=== PATIENT | female | born 1970 | race Caucasian/White ===

== ENCOUNTER 2020-11-21 02:35 | Outpatient (CLI) | payer BC, SELFPAY ==
[2020-11-21 08:25] LABS: ALT 22 U/L (14-59); AST 14 U/L (15-37); Albumin 3.9 g/dL (3.4-5.0); Alkaline Phosphatase 77 U/L (46-116); Anion Gap 6.3 mmol/L (3-11); BUN 11 mg/dL (7-18); Bilirubin, Total 0.7 mg/dL (0.2-1.0); CO2 30.7 mmol/L (21.0-32.0); CREATININE 0.9 mg/dL (0.55-1.02); Calcium 9.1 mg/dL (8.5-10.1); Calculated LDL 68 mg/dL (<100); Chloride 105 mmol/L (98-107); Cholesterol 169 mg/dL (<200); Glucose 82 mg/dL (74-106); HDL Cholesterol 93 mg/dL (40-60); Potassium 4.3 mmol/L (3.5-5.1); Sodium 142 mmol/L (136-145); Total Protein 6.8 g/dL (6.4-8.2); Triglyceride 41 mg/dL (<150)
[2020-11-22 09:42] LABS: Hepatitis C Ab w Rflx HCV PCR Negative (Negative)
[2020-11-22 09:53] LABS: HIV-1/2 Ag & Ab Screen Negative (Negative)
== END 2020-11-21 02:36 | disposition home or self-care (01) ==
PROVIDERS: PCP Nurse Practitioner Adult Health; Visit Provider Nurse Practitioner Adult Health
DX: E55.9 Vitamin D deficiency, unspecified (principal); Z13.220 Encounter for screening for lipoid disorders; Z11.4 Encounter for screening for human immunodeficiency virus [HIV]; Z11.59 Encounter for screening for other viral diseases
CPT/HCPCS: 36415; 80053; 80061; 82306; 86803; 87389

== ENCOUNTER 2020-12-18 13:12 | Outpatient (REF) | payer BC, SELFPAY ==
--- NOTE | 2020-12-18 12:30 | PAPFT_PTH ---
PATIENT: Melody Soriano LOC: [facility] U#:[id number] AGE/SX: 50/F ROOM: RE12/18/[address]: Yoly Soto APRN : 1970 BED: DIS: 12/18/2020 SPEC #: [id number] RECD: 12/19/20 13:02 STATUS: TAYLER REPk #: [id number] ESPERANZA: 12/18/20 12:[address]: Yoly Soto [facility] Cytology RECD BY: Светлана Baird Tissues: 1 - CX/ENDOCX FOR PAP SMEARS Procedures: PAP THIN PREP/UVM Screening HPV DNA PROBE Comments: [id number]
== END 2020-12-18 13:13 | disposition home or self-care (01) ==
LOC: LBN 13:12
PROVIDERS: PCP Nurse Practitioner Adult Health; Referring Provider Nurse Practitioner Adult Health; Visit Provider Nurse Practitioner Adult Health
DX: Z12.4 Encounter for screening for malignant neoplasm of cervix (principal); Z11.51 Encounter for screening for human papillomavirus (HPV)
CPT/HCPCS: 88142; 87624

== ENCOUNTER 2021-01-02 01:44 | Outpatient (CLI) | payer BC, SELFPAY ==
--- NOTE | 2021-01-02 11:13 | DI.MAMMO_ITS ---
Exam(s) MAMMO SCREENING EXAM: MAMMO SCREENING CLINICAL HISTORY: screening,z12.39h/o recurrent us due to density,dense breast tissue,r92.2. TECHNIQUE: Bilateral full field digital CC and MLO mammographic images were obtained with 3D tomosyn thesis and utilizing computer aided detection (CAD). COMPARISON: Prior outside mammograms dating back to 2018, the most recent being July 10, 2020. T his patient also apparently underwent recent breast ultrasound examinations in [place] in January 14 and more recently right breast ultrasound performed in [place] 07/10/2020. We have the report s but not the prior images. FINDINGS: Fibroglandular tissue pattern is dense, this decreasing the sensitivity of the mammogram for finding hidden underlying lesions. Biopsy marker clip posteriorly in the right breast is again noted with no new significant findings in the immediate vicinity of this clip. On 3D imaging there is a suggestion of a 5 by 5 millimeter noncalcified well-defined nodule located a pproximately 2.5 cm in from the nipple, lateral of center on the CC view. Also subtle suggestion of a nodular density of similar size in the opposite-right breast, also lateral of center approximately 4 cm in from the nipple on the CC view. Benign-appearing microcalcifications are again noted in both breast There is no significant architectural distortion nor skin thickening-retraction. IMPRESSION: Very dense bilateral fibroglandular tissue. Suggestion of bilateral nodules. Recommend bilateral co mplete breast ultrasound examination. BI-RADS Category 0 - Assessment Incomplete: Need additional imaging evaluation Breast Density - Category D - Extremely dense Breast density Category C or D implies that the patient has dense breast tissue. Dense breast tissue can make it harder to find cancer on a mammogram. Dense breast tissue is also associated with an incr eased risk of breast cancer. This information about the result of the mammogram report was provided to the patient to raise their awareness. Use this report when you speak with the patient about their risks for breast cancer, which includes their family history. At that time, you may recommend additional screening tests (Ultrasoun d or MRI) as these tests may add significant information. A negative radiographic report should not delay biopsy if a dominant or clinically suspicious mass is present. Up to ten percent of cancers are not identified on mammography. A negative report may reinforce clinical impression. Adenosis and dense breasts may obscure an underlying neoplasm. False positive reports average 6 to 10%. Patient will receive a letter notifying them of these results.
== END 2021-01-02 02:04 ==
PROVIDERS: PCP Nurse Practitioner Adult Health; Visit Provider Nurse Practitioner Adult Health
DX: Z12.31 Encounter for screening mammogram for malignant neoplasm of breast (principal); R92.8 Other abnormal and inconclusive findings on diagnostic imaging of breast
CPT/HCPCS: 77063; 77067

== ENCOUNTER 2021-12-09 15:14 | Outpatient (REF) | payer BC, SELFPAY ==
[2021-12-11 15:09] LABS: Chlamydia Result Negative (Negative); GC Result Negative (Negative)
== END 2021-12-09 15:15 | disposition home or self-care (01) ==
LOC: LBN 15:14
PROVIDERS: PCP Nurse Practitioner Adult Health; Visit Provider Nurse Practitioner
DX: N94.9 Unspecified condition associated with female genital organs and menstrual cycle (principal); R30.0 Dysuria
CPT/HCPCS: 87491; 87591; 87086; 87480; 87510; 87660

== ENCOUNTER 2021-12-17 16:36 | Outpatient (REF) | payer BC, SELFPAY | END 2021-12-17 16:37 | disposition home or self-care (01) | LOC: LBN 16:36 | PROVIDERS: PCP Nurse Practitioner Adult Health; Visit Provider Nurse Practitioner | DX: R30.0 Dysuria (principal) | CPT/HCPCS: 87086 ==

== ENCOUNTER 2022-01-12 02:14 | Outpatient (CLI) | payer BC, SELFPAY ==
--- OUTSIDE RECORDS SUMMARY | 2022-01-12 02:27 | XMS_ITS | Encounter Summary ---
:1970 Demographics Home Phone Preferred Language Unknown Marital Status Unknown Islam Affiliation Unknown Race Unknown Ethnic Group Unknown Author Organization [facility] Address [address] [place] [address] Care Team Providers Name Role Phone Unavailable Primary Care Provider Unavailable Encounter Details Date Type Department Care Team Description 12/20/2020 Lab Requisition [facility] Yoly Soto En counter for screening for malignant neoplasm of cervix; Pathology & L, DESIGN SALES CONSULTANT Encounter for screening for human papill omavirus (HPV) Laboratory Medicine [address] [place] [id number] Social History Tobacco Use Types Packs/Day Years Used Date Never Assessed Sex Assigned at Date Recorded Not on file documented as of this encounter Plan of Treatment Not on filedocumented as of this encounter Procedures Procedure Name Priority Date/Time Associated Diagnosis Comme nts PAP TEST Today 12/18/2020 12:30 Encounter for Results fo r this EDT screening for procedure are in malignant neoplasm of the re sults cervix section. Encounter for screening for human papillomavirus (HPV) HUMAN PAPILLOMAVIRUS Today 12/18/2020 12:30 Encounter for Re sults for this (HPV) DETECTION-HIGH EDT screening for proced ure are in RISK TYPES malignant neoplasm of the re sults cervix section. Encounter for screening for human papillomavirus (HPV) documented in this encounter Results HUMAN PAPILLOMAVIRUS (HPV) DETECTION-HIGH RISK TYPES (12/18/2020 12:30 EDT) Human Papillomavirus NegativeComment: No Negative [facility] MEDICAL (HPV) Detection-High E6 or E7 mRNA is CENTER LABORATOR Y Types detected from HPV SERVICES types 16,18,31,33,35,39,45 ,51,52,56,58,59,66, and 68 by engagement mgr mediated amplification. Specimen Pap Test - Cervix and/or Endocervix Performing Organization Address City/State/ZIP Code Phon e Number [facility] [address] [place] [address] SERVICES PAP TEST (12/18/2020 12:30 EDT) Specimens A. Cervix and/or [facility] Endocervix , ThinPrep CENTER Imaging System with LABORATORY Manual Evaluation SERVICES Specimen Adequacy Satisfactory for [facility] MEDICAL Evaluation - CENTER transformation zone LABORATORY component absent SERVICES General Negative for [facility] intraepithelial HOMOSASSA lesion or malignancy LABORATORY SERVICES Attestation . [facility] Electronically CENTER signed by Tony stuart LABORATORY MARTITA Amin([facility]) SERVICES on 12/31/2020 at 1529 Clinical History See below [facility] SERVICES HPV The result for the Human Pap illomavirus (HPV) Detection-High Risk Types is Negative. No E6 or E7 mRNA is detected from HPV types 16,18,31,33,35,39,45,51,52,56,58,59,66, and 68 by engagement mgr mediated [facility] amplification.Testing was pe rformed on specimen [id number] and was resulted on 12/31/2020 1523 EDT by MADAN, LAB INSTRUMENT RESULTS IN [facility] LABORATORY SERVICES Performing Lab [facility] LAB [facility] SERVICES Scanned Images [facility] SERVICES Specimen Pap Test - Cervix and/or Endocervix Performing Organization Address City/State/ZIP Code Phon e Number [facility] [address] [place] [address] SERVICES documented in this encounter Visit Diagnoses Diagnosis Encounter for screening for malignant ne oplasm of cervix Screening for malignant neoplasm of the cervix Encounter for screening for human papill omavirus (HPV) Special screening examination for human papillomavirus (HPV) documented in this encounter
--- OUTSIDE RECORDS SUMMARY | 2022-01-12 02:27 | XMS_ITS | Encounter Summary ---
:1970 Author Organization [facility] [place] [address] [place] [address] Care Team Providers Name Role Phone Unavailable Primary Care Provider Unavailable Encounter Details Date Type Department Care Team Description 01/28/2021 Ancillary Procedure Radiology Library at Raya Soto [facility] GRAVEL MACHINE OPERATOR [facility] [address] [place] [id number] [phone] (Wo rk) Social History Tobacco Use Types Packs/Day Years Used Date Never Assessed Sex Assigned at Date Recorded Not on file documented as of this encounter Plan of Treatment Not on filedocumented as of this encounter Procedures Procedure Name Priority Date/Time Associated Diagnosis Comme nts FILM Routine 01/28/2021 12:00 AM Results for this LIBRARY-STORAGE EDT procedure ar e in ONLY US BREAST the results section. documented in this encounter Results Film Library Storage Only US Breast (01/28/2021 12:00 AM EDT) Specimen (Source) Anatomical Location Collection Method / Collectio n Time Received Time / Laterality Volume Narrative RAD - 01/31/2021 11:02 AM EDT This exam is auto-finalizing. It's purpo se is for storage only. Yoly Soto APRN IMG FILM LIBRARY ORDERABLES Performing Organization Address City/State/ZIP Code Phon e Number RAD [place], [place] documented in this encounter Visit Diagnoses Not on filedocumented in this encounter
--- OUTSIDE RECORDS SUMMARY | 2022-01-12 02:27 | XMS_ITS | Encounter Summary ---
:1970 Author Organization [facility] [place] [address] [place] [address] Care Team Providers Name Role Phone Unavailable Primary Care Provider Unavailable Reason for Visit (Routine) - Pending Review Specialty Diagnoses / Procedures Referred By Contact Refer red To Contact Radiology Diagnoses Breast lesion Yoly Soto, MEAGHAN Procedures Request for 2nd read Mammo [address] [place] [address] Referral ID Status Reason Start Date Expiration Date Visits V isits Requested Authorized [id number] Pending 02/11/2021 02/11/2022 1 1 Review Encounter Details Date Type Department Care Team Description 02/11/2021 Ancillary Procedure Radiology Library at Raya Soto, Breast lesion [facility] COMPLAINT EVALUATION OFFICER [facility] [address] [address] [place] [address] [phone] Social History Tobacco Use Types Packs/Day Years Used Date Never Assessed Sex Assigned at Date Recorded Not on file documented as of this encounter Plan of Treatment Not on filedocumented as of this encounter Procedures Procedure Name Priority Date/Time Associated Diagnosis Comme nts REQUEST FOR 2ND Routine 02/11/2021 10:26 AM Breast lesion Resu lts for this READ MAMMO EDT procedure are i n the results section. documented in this encounter Results Request for 2nd read Mammo (02/11/2021 10:26 AM EDT) Anatomical Region Laterality Modality SO Specimen (Source) Anatomical Location Collection Method / Collectio n Time Received Time / Laterality Volume Impressions 02/11/2021 10:51 AM EDT No mammographic or ultrasound evidence of malignancy. RECOMMENDATION: Advise annual screening and recommend ab breviated MRI if this patient is not high risk but desires supplemental scree darian. Scribed breast BI-RADS 2 Please note: The interpretation of the [facility] Breast Imaging Radiologist subspecialist may differ fro m the original radiologist's interpretation. This is usually not due to a deficiency of the original interpreting radiologist, rather due to the greater skill level afforded by sub-specialization in the field and/or r easonable variations in interpretations. If you have a concern regarding the D-H interpretation you may contact the D- Breast Cyber Systems Administrator Office at . Thank you for letting us participate in the care of this patient. ??If you are a health care provider and have any questi ons regarding this report, please contact the number below. ??For patients who have questions please contact the health health care marketing manager that requested your imaging first. ? Narrative 02/11/2021 10:51 AM EDT INTERPRETATION OF OUTSIDE BREAST IMAGING I have been asked to consult on this pat ient by Yoly Soto APRN because he/she believes a review of this study m ay change or alter the care of this patient. STUDIES FROM: [facility] DATES: 01/02/2021 mammogram and 01/28/2021 b ilateral screening breast ultrasound. CLINICAL HISTORY: Repeat imaging in 6 mo [facility]; Sending Institution [facility]; Date of exam 20210102; I believe a reinterpretat ion of this exam may alter care of Patient. Yes; Cystic lesions: Right [address]an st 9 o'clock, left breast 2 o'clock, CAT 3, pt would like treatment at [facility]. ?? COMPARISONS: This study was compared with prior image s. There are no prior breast ultrasound images for comparison. FINDINGS: 2-D and digital breast tomosynthesis kota ging performed bilaterally. The breasts are heterogeneously dense, which may obs cure small masses. There are no suspicious masses, suspicious microcalci fications, or areas of architectural distortion. A core biopsy clip projects in the right upper posterior breast. Please note: Breast ultrasound is operat or dependent. Complete assessment of the breast tissue is not possible through st atic images or cine loops. Because breast ultrasound is a dynamic process t he interpretive value of outside images is limited. Nondirected ultrasound depic ts several small cysts. There is no evidence of a discrete solid lesion or a bnormal acoustical shadowing in these images. Procedure Note Constance Stallworth MD - 02/11/2021Form atting of this note might be different from the original. INTERPRETATION OF OUTSIDE BREAST IMAGING I have been asked to consult on this pat ient by Yoly Soto APRN because he/she believes a review of this study m ay change or alter the care of this patient. STUDIES FROM: [facility] DATES: 01/02/2021 mammogram and 01/28/2021 b ilateral screening breast ultrasound. CLINICAL HISTORY: Repeat imaging in 6 mo nths; Sending Institution [facility]; Date of exam 20210102; I believe a reinterpretat ion of this exam may alter care of Patient. Yes; Cystic lesions: Right [facility]an st 9 o'clock, left breast 2 o'clock, CAT 3, pt would like treatment at [facility]. COMPARISONS: This study was compared with prior image s. There are no prior breast ultrasound images for comparison. FINDINGS: 2-D and digital breast tomosynthesis kota ging performed bilaterally. The breasts are heterogeneously dense, which may obs cure small masses. There are no suspicious masses, suspicious microcalci fications, or areas of architectural distortion. A core biopsy clip projects in the right upper posterior breast. Please note: Breast ultrasound is operat or dependent. Complete assessment of the breast tissue is not possible through st atic images or cine loops. Because breast ultrasound is a dynamic process t he interpretive value of outside images is limited. Nondirected ultrasound depic ts several small cysts. There is no evidence of a discrete solid lesion or a bnormal acoustical shadowing in these images. IMPRESSION No mammographic or ultrasound evidence o f malignancy. RECOMMENDATION: Advise annual screening and recommend ab breviated MRI if this patient is not high risk but desires supplemental scree darian. Scribed breast BI-RADS 2 Please note: The interpretation of the [facility] Breast Imaging Radiologist subspecialist may differ fro m the original radiologist's interpretation. This is usually not due to a deficiency of the original interpreting radiologist, rather due to the greater skill level afforded by sub-specialization in the field and/or r easonable variations in interpretations. If you have a concern regarding the D- interpretation you may contact the [facility] Breast Cyber Systems Administrator Office at . Thank you for letting us participate in the care of this patient. If you are a health care provider and have any questi ons regarding this report, please contact the number below. For patients w ho have questions please contact the health health care marketing manager that requested your imaging first. Yoly Soto APRN IMG OUTSIDE INTERPRETATION O RDERABLES documented in this encounter Visit Diagnoses Diagnosis Breast lesion Unspecified breast disorder documented in this encounter
--- OUTSIDE RECORDS SUMMARY | 2022-01-12 02:27 | XMS_ITS | Encounter Summary ---
:1970 [place] [address] Care Team Providers Name Role Phone Unavailable Primary Care Provider Unavailable Encounter Details Date Type Department Care Team Description 01/15/2020 Ancillary Procedure Radiology Library at Rebecca Stallworth [facility] MD Carlos [facility] [place] [address] DIAGNOSTIC [phone] RADIOLOGY [place], [place] [address] (Wo rk) Social History Tobacco Use Types Packs/Day Years Used Date Never Assessed Sex Assigned at Date Recorded Not on file documented as of this encounter Plan of Treatment Not on filedocumented as of this encounter Procedures Procedure Name Priority Date/Time Associated Diagnosis Comme nts FILM Routine 01/15/2020 12:00 AM Results for this LIBRARY-STORAGE EDT procedure ar e in ONLY US BREAST the results section. documented in this encounter Results Film Library Storage Only US Breast (01/15/2020 12:00 AM EDT) Specimen (Source) Anatomical Location Collection Method / Collectio n Time Received Time / Laterality Volume Narrative RAD - 03/25/2021 9:24 AM EDT This exam is auto-finalizing. It's purpo se is for storage only. Constance Stallworth MD [facility] FILM LIBRARY ORDERABLES Performing Organization Address City/State/ZIP Code Phon e Number RAD [place], [place] documented in this encounter Visit Diagnoses Not on filedocumented in this encounter
--- OUTSIDE RECORDS SUMMARY | 2022-01-12 02:27 | XMS_ITS | Encounter Summary ---
:1970 Demographics Home Phone Preferred Language Unknown Marital Status Unknown Sikhism Affiliation Unknown Race Unknown Ethnic Group Unknown Author Organization [facility] Address [address] [place] [address] Care Team Providers Name Role Phone Unavailable Primary Care Provider Unavailable Encounter Details Date Type Department Care Team Description 11/21/2020 Lab Requisition [facility] Outr Resulting Lab, Pathology & Laboratory Provider [facility] [address] [place] [address] Social History Tobacco Use Types Packs/Day Years Used Date Never Assessed Sex Assigned at Date Recorded Not on file documented as of this encounter Plan of Treatment Not on filedocumented as of this encounter Procedures Procedure Name Priority Date/Time Associated Comments Diagnosis HIV 1/2 ANTIGEN AND Routine 11/21/2020 7:21 EDT R esults for this ANTIBODY, 4TH procedure are in GENERATION the results section. documented in this encounter Results HIV 1/2 ANTIGEN AND ANTIBODY, 4TH GENERATION (11/21/2020 7:21 EDT) HIV 1 and 2 Negative Negative [facility] Antibody/p24 Comment: LABORATORY Antigen, 4th If acute HIV-1 infection is suspected in a high risk ??patient, submit plasma specimen for HIV-1 RNA quantitation test. SERV ICES Generation Fourth Generation assay performed on the Siemens ThinkUpa ur. Specimen Blood - Venous blood (substance) Performing Organization Address City/State/ZIP Code Phon e Number [facility] [address] [place] [address] SERVICES documented in this encounter Visit Diagnoses Not on filedocumented in this encounter
--- OUTSIDE RECORDS SUMMARY | 2022-01-12 02:27 | XMS_ITS | Encounter Summary ---
:1970 [place] [address] Care Team Providers Name Role Phone Unavailable Primary Care Provider Unavailable Encounter Details Date Type Department Care Team Description 02/03/2021 Telephone Hematology and Oncology at [facility] [place] [address] Social History Tobacco Use Types Packs/Day Years Used Date Never Assessed Sex Assigned at Date Recorded Not on file documented as of this encounter Miscellaneous Notes Telephone Encounter - Madyson Gill - 02/03/2021 8:26 AM EDT Melody Soriano 1970 [id number] Referring provider: Yoly Soto APRN Date of Referral: 02/03/2021 Please review outside breast imaging dated: 01.28.2021 Reason for exam and clinical history: bilat Cystic lesions, Right breast 9 o'clock, Left breast 2 o'clock Category: 3 Questions to be answered: Repeat imaging in 6 months Sending Institution: [facility] Patient would like treatment at: [facility] Call pt at: No relevant phone numbers on file. documented in this encounter Plan of Treatment Not on filedocumented as of this encounter Visit Diagnoses Not on filedocumented in this encounter
--- OUTSIDE RECORDS SUMMARY | 2022-01-12 02:27 | XMS_ITS | Encounter Summary ---
:1970 [place] [address] Care Team Providers Name Role Phone Unavailable Primary Care Provider Unavailable Encounter Details Date Type Department Care Team Description 08/03/2018 Ancillary Procedure Radiology Library at Rebecca Stallworth [facility] [place] Carlos [facility] [place] [address] DIAGNOSTIC [phone] RADIOLOGY [place], [place] [address] (Wo rk) Social History Tobacco Use Types Packs/Day Years Used Date Never Assessed Sex Assigned at Date Recorded Not on file documented as of this encounter Plan of Treatment Not on filedocumented as of this encounter Procedures Procedure Name Priority Date/Time Associated Diagnosis Comme nts FILM LIBRARY Routine 08/03/2018 12:00 AM Results for this STORAGE ONLY MAMMO EST procedure are in the results section. documented in this encounter Results Film Library- Storage Only Mammo (08/03/2018 12:00 AM EST) Specimen (Source) Anatomical Location Collection Method / Collectio n Time Received Time / Laterality Volume Narrative RAD - 03/25/2021 9:31 AM EDT This exam is auto-finalizing. It's purpo se is for storage only. Constance Stallworth MD IMG FILM LIBRARY ORDERABLES Performing Organization Address City/State/ZIP Code Phon e Number RAD [place], [place] documented in this encounter Visit Diagnoses Not on filedocumented in this encounter
--- OUTSIDE RECORDS SUMMARY | 2022-01-12 02:27 | XMS_ITS | Encounter Summary ---
:1970 [place] [address] Care Team Providers Name Role Phone Unavailable Primary Care Provider Unavailable Encounter Details Date Type Department Care Team Description 12/01/2016 Ancillary Procedure Radiology Library at Rebecca Stallworth [facility] MD Carlos [facility] [address] DIAGNOSTIC [phone] RADIOLOGY [place], [place] [address] (Wo rk) Social History Tobacco Use Types Packs/Day Years Used Date Never Assessed Sex Assigned at Date Recorded Not on file documented as of this encounter Plan of Treatment Not on filedocumented as of this encounter Procedures Procedure Name Priority Date/Time Associated Diagnosis Comme nts FILM LIBRARY Routine 12/01/2016 12:00 AM Results for this STORAGE ONLY MAMMO EDT procedure are in the results section. documented in this encounter Results Film Library- Storage Only Mammo (12/01/2016 12:00 AM EDT) Specimen (Source) Anatomical Location Collection Method / Collectio n Time Received Time / Laterality Volume Narrative RAD - 03/25/2021 9:32 AM EDT This exam is auto-finalizing. It's purpo se is for storage only. Constance Stallworth MD [facility] FILM LIBRARY ORDERABLES Performing Organization Address City/State/ZIP Code Phon e Number RAD [place], [place] documented in this encounter Visit Diagnoses Not on filedocumented in this encounter
--- OUTSIDE RECORDS SUMMARY | 2022-01-12 02:27 | XMS_ITS | Encounter Summary ---
:1970 Demographics Home Phone Preferred Language Unknown Marital Status Unknown Anglican Affiliation Unknown Race Unknown Ethnic Group Unknown Author Organization [facility] Address [address] [place] [address] Care Team Providers Name Role Phone Unavailable Primary Care Provider Unavailable Encounter Details Date Type Department Care Team Description 12/10/2021 Lab Requisition [facility] Outr Resulting Lab, Pathology & Laboratory Provider [facility] [address] [place] [address] Social History Tobacco Use Types Packs/Day Years Used Date Never Assessed Sex Assigned at Date Recorded Not on file documented as of this encounter Plan of Treatment Not on filedocumented as of this encounter Procedures Procedure Name Priority Date/Time Associated Comments Diagnosis CHLAMYDIA/N. Routine 12/09/2021 15:30 Results for this GONORRHOEAE AMPLIFIED EDT proced ure are in RNA the results section. documented in this encounter Results CHLAMYDIA/N. GONORRHOEAE AMPLIFIED RNA (12/09/2021 15:30 EDT) Pathologist Sig nature Gonococcus Result Negative Negative [facility] Chlamydia Result Negative Negative [facility] Specimen Swab - Entire wall of cervix (body struc ture) Performing Organization Address City/State/ZIP Code Phon e Number [facility] [address] [place] [address] SERVICES documented in this encounter Visit Diagnoses Not on filedocumented in this encounter
--- OUTSIDE RECORDS SUMMARY | 2022-01-12 02:27 | XMS_ITS | Encounter Summary ---
:1970 Demographics Home Phone Preferred Language Unknown Marital Status Unknown Evangelical Affiliation Unknown Race Unknown Ethnic Group Unknown Author Organization [facility] Address [address] [place] [address] Care Team Providers Name Role Phone Unavailable Primary Care Provider Unavailable Encounter Details Date Type Department Care Team Description 11/21/2020 Lab Requisition [facility] Outr Resulting Lab, Pathology & Laboratory Provider [facility] [address] [place] [address] Social History Tobacco Use Types Packs/Day Years Used Date Never Assessed Sex Assigned at Date Recorded Not on file documented as of this encounter Plan of Treatment Not on filedocumented as of this encounter Procedures Procedure Name Priority Date/Time Associated Diagnosis Comme nts HEPATITIS C AB W Routine 11/21/2020 7:21 EDT Resu lts for this REFLEX TO HCV RNA procedure are in BY PCR the results section. documented in this encounter Results HEPATITIS C AB W REFLEX TO HCV RNA BY PCR (11/21/2020 7:21 EDT) Pathologist Sig nature Hep C Antibody Negative Negative [facility] Specimen Blood - Venous blood (substance) Performing Organization Address City/State/ZIP Code Phon e Number [facility] [address] [place] [address] SERVICES documented in this encounter Visit Diagnoses Not on filedocumented in this encounter
[2022-01-12 16:13] LABS: TSH (W/Ref FT4) 1.25 uIU/mL (0.36-3.74)
[2022-01-12 23:18] LABS: FSH 88.8 mIU/mL (See Note); Prolactin 5.7 ng/mL (See Note)
== END 2022-01-12 02:15 | disposition home or self-care (01) ==
LOC: LBO 02:14
PROVIDERS: PCP Nurse Practitioner Adult Health; Visit Provider Obstetrics & Gynecology
DX: N93.8 Other specified abnormal uterine and vaginal bleeding (principal); R10.2 Pelvic and perineal pain; N92.6 Irregular menstruation, unspecified
CPT/HCPCS: 36415; 83001; 84146; 84443

== ENCOUNTER 2022-01-20 09:55 | Outpatient (REF) | payer BC, SELFPAY ==
--- NOTE | 2022-01-20 09:30 | ENDOMET_PTH ---
PATIENT: Melody Soriano LOC: [facility] U#:[id number] AGE/SX: 51/F ROOM: RE01/20/[address]: Brie Canales DO : 1970 BED: DIS: 01/20/2022 SPEC #: [id number] RECD: 01/20/22 12:32 STATUS: [place]Kade REQ #: [id number] ESPERANZA: 01/20/22 09:[address]: Brie Canales DEPT: Surgical Specimen RECD BY: Светлана Baird ENTERED: 01/20/22 12:33 SP TYPE: Endomet OTHR DR: Yoly Soto APRN Tissues: 1 - ENDOMETRIUM BX/JATINDER Procedures: GROSS AND MICRO LEVEL 4 Comments: [id number]
== END 2022-01-20 09:56 | disposition home or self-care (01) ==
LOC: LBN 09:55
PROVIDERS: PCP Nurse Practitioner Adult Health; Visit Provider Obstetrics & Gynecology
DX: N95.0 Postmenopausal bleeding (principal); N85.00 Endometrial hyperplasia, unspecified
CPT/HCPCS: 88305

== ENCOUNTER → 2022-02-02 02:56 | Outpatient (CLI) | payer BC, SELFPAY ==
--- NOTE | 2022-02-02 07:45 | DI.MAMMO_ITS ---
Exam(s) MAMMO SCREENING EXAM: MAMMO SCREENING CLINICAL HISTORY: screening,Z12.39. TECHNIQUE: Bilateral full field digital CC and MLO mammographic images were obtained with 3D tomosyn thesis and utilizing computer aided detection (CAD). COMPARISON: Prior mammograms were reviewed, the most recent being December 2020. Subsequent ultrasound examinations of January 2021 and August 2021 reviewed FINDINGS: Fibroglandular tissue is again noted be dense, this somewhat decreasing the sensitivity mammogram for finding hidden underlying lesions. There are no new significant findings in the immediate vicinity of the biopsy marker clip posteriorly in the right breast. There are no new obvious spiculated masses nor malignant appearing microcalcification groups. There is no new significant architectural distortion nor skin thickening-retraction. IMPRESSION: Dense bilateral fibroglandular tissue. No obvious radiographic evidence of malignancy nor significan t radiographic change compared to prior mammograms. Appropriate follow-up is to keep this patient on a yearly mammogram schedule, with earlier imaging if a self detected breast changes noted. In addition, I recommend repeat bilateral breast ultrasound a t the time for next yearly mammogram, earlier if clinically indicated. BI-RADS Category 2 - Benign Findings Breast Density - Category C - Heterogeneously dense Breast density Category C or D implies that the patient has dense breast tissue. Dense breast tissue can make it harder to find cancer on a mammogram. Dense breast tissue is also associated with an incr eased risk of breast cancer. This information about the result of the mammogram report was provided to the patient to raise their awareness. Use this report when you speak with the patient about their risks for breast cancer, which includes their family history. At that time, you may recommend additional screening tests (Ultrasoun d or MRI) as these tests may add significant information. A negative radiographic report should not delay biopsy if a dominant or clinically suspicious mass is present. Up to ten percent of cancers are not identified on mammography. A negative report may reinforce clinical impression. Adenosis and dense breasts may obscure an underlying neoplasm. False positive reports average 6 to 10%. Patient will receive a letter notifying them of these results.
== END ==
PROVIDERS: PCP Nurse Practitioner Adult Health; Visit Provider Nurse Practitioner Adult Health
DX: Z12.31 Encounter for screening mammogram for malignant neoplasm of breast (principal); R91.8 Other nonspecific abnormal finding of lung field
CPT/HCPCS: 77063; 77067

== ENCOUNTER 2022-08-10 17:19 | Outpatient (REF) | payer BC, SELFPAY ==
--- NOTE | 2022-08-10 15:00 | ENDOMET_PTH ---
PATIENT: Melody Soriano LOC: [facility] U#:[id number] AGE/SX: 51/F ROOM: RE08/10/[address]: Brie Canales DO : 1970 BED: DIS: 08/10/2022 SPEC #: [id number] RECD: 08/10/22 17:31 STATUS: TAYLER REQ #: [id number] ESPERANZA: 08/10/22 15:[address]: Brie Canales DEPT: Surgical Specimen RECD BY: Светлана Baird ENTERED: 08/10/22 17:31 SP TYPE: Endomet OTHR DR: Yoly Soto APRN Tissues: 1 - ENDOMETRIUM BX/JATINDER Procedures: GROSS AND MICRO LEVEL 4 Comments: [id number]
== END 2022-08-10 17:20 | disposition home or self-care (01) ==
LOC: LBN 17:19
PROVIDERS: PCP Nurse Practitioner Adult Health; Visit Provider Obstetrics & Gynecology
DX: N95.0 Postmenopausal bleeding (principal)
CPT/HCPCS: 88305

== ENCOUNTER 2023-01-11 04:12 | Outpatient (CLI) | payer BC, SELFPAY ==
[2023-01-11 10:02] LABS: ALT 18 U/L (14-59); AST 18 U/L (15-37); Alkaline Phosphatase 90 U/L (46-116); Anion Gap 4.7 mmol/L (3-11); BUN 15 mg/dL (7-18); Bilirubin, Total 0.6 mg/dL (0.2-1.0); CO2 33.3 mmol/L (21.0-32.0); CREATININE 0.9 mg/dL (0.55-1.02); Calcium 9.3 mg/dL (8.5-10.1); Calculated LDL 84 mg/dL (<100); Chloride 104 mmol/L (98-107); Cholesterol 181 mg/dL (<200); Estimated GFR 75.97 (mL/min/1.73m2); Folate 10.6 ng/mL (8.6-20.0); Glucose 82 mg/dL (74-106); HDL Cholesterol 90 mg/dL (40-60); Sodium 142 mmol/L (136-145); Total Protein 7.1 g/dL (6.4-8.2); Triglyceride 38 mg/dL (<150); Vitamin B12 408 pg/mL (193-986)
[2023-01-11 15:18] LABS: Vitamin D 25 Total 39.9 ng/mL (30-100)
== END 2023-01-11 04:13 | disposition home or self-care (01) ==
LOC: LBO 04:12
PROVIDERS: PCP Nurse Practitioner Adult Health; Referring Provider Nurse Practitioner Adult Health; Visit Provider Nurse Practitioner Adult Health
DX: Z13.1 Encounter for screening for diabetes mellitus (principal); Z13.220 Encounter for screening for lipoid disorders; Z51.81 Encounter for therapeutic drug level monitoring
CPT/HCPCS: 36415; 80053; 80061; 82306; 82607; 82746

== ENCOUNTER → 2023-02-08 02:37 | Outpatient (CLI) | payer BC, SELFPAY ==
--- NOTE | 2023-02-08 06:30 | DI.MAMMO_ITS ---
Exam(s) MAMMO SCREENING EXAM: MAMMO SCREENING CLINICAL HISTORY: screening,Z12.39. TECHNIQUE: Bilateral full field digital CC and MLO mammographic images were obtained with 3D tomosyn thesis and utilizing computer aided detection (CAD). COMPARISON: Prior mammograms were reviewed. Prior ultrasounds reviewed. FINDINGS: Fibroglandular tissue pattern is again noted be moderately dense. There are no CAD designations. No new significant findings in the right breast. There are no new findings in the immediate vicinity of the biopsy marker clip in the lateral aspect o f the right breast. In the left breast there is a well-defined noncalcified nodular density measuring 6 by 4 mm, located 2 cm in from the nipple on the CC view. In addition to this nodule there are 2 other similar size nodular densities seen in the left breast o n the MLO view, these located approximately 5 cm in from the nipple on the 3D MLO images. There are no malignant-appearing microcalcification groups in this region or elsewhere in either [address] st. There is no significant architectural distortion nor skin thickening-retraction. IMPRESSION: 1. Moderately dense fibroglandular tissue. No radiographic evidence of malignancy in the right breas t. 2. There are 3 nodular densities in the left breast as described above now evident. Spot compression views and breast ultrasound recommended. BI-RADS Category 0 - Assessment Incomplete: Need additional imaging evaluation Breast Density - Category C - Heterogeneously dense Breast density Category C or D implies that the patient has dense breast tissue. Dense breast tissue can make it harder to find cancer on a mammogram. Dense breast tissue is also associated with an incr eased risk of breast cancer. This information about the result of the mammogram report was provided to the patient to raise their awareness. Use this report when you speak with the patient about their risks for breast cancer, which includes their family history. At that time, you may recommend additional screening tests (Ultrasoun d or MRI) as these tests may add significant information. A negative radiographic report should not delay biopsy if a dominant or clinically suspicious mass is present. Up to ten percent of cancers are not identified on mammography. A negative report may reinforce clinical impression. Adenosis and dense breasts may obscure an underlying neoplasm. False positive reports average 6 to 10%. Patient will receive a letter notifying them of these results.
== END ==
PROVIDERS: PCP Nurse Practitioner Adult Health; Visit Provider Nurse Practitioner Adult Health
DX: Z12.31 Encounter for screening mammogram for malignant neoplasm of breast (principal)
CPT/HCPCS: 77063; 77067

== ENCOUNTER → 2023-02-22 01:40 | Outpatient (CLI) | payer BC, SELFPAY ==
--- NOTE | 2023-02-22 | DI.US_ITS ---
Exam(s) MG MAMMO SCREEN CALL BACK UNI US BREAST LT COMPLETE EXAM: MG MAMMO SCREEN CALL BACK UNI CLINICAL HISTORY: NODULAR DENSITIES LEFT BREAST R92.8 ABNL MAMMO. TECHNIQUE: Craniocaudal and mediolateral oblique spot compression digital Mammography views of the l eftbreast with Tomosynthesis and left breast ultrasound. COMPARISON: Mammograms 2019 through the recent exam February 17 FINDINGS: Mammography/Tomosynthesis: Masses/Architectural Distortion: Persistent areas of nodularity are noted in the midline and lateral left breast. Microcalcifictions: No suspicious pleomorphic-type are seen. Skin Thickening/Nipple Retraction: None. Left breast US: Echotexture: Normal appearance of the glandular tissue. Shadowing: No suspicious foci. Cyst: 6 millimeter cyst 7 o'clock position, 2 cm from the nipple. 5 millimeter cyst 3 o'clock positi on 1 cm from the nipple. 5 millimeter cyst 3 o'clock position 2 cm from the nipple. Solid lesions: None seen. Ductal dilation: None. IMPRESSION: 1. No evidence of malignancy is noted. Small cysts again noted. 2. Unless there is more urgent need, follow-up screening mammography is recommended, in 1 year. 3. The findings were discussed with the patient on the date of the examination. BI-RADS Category 2 - Benign Findings Breast Density - Category C - Heterogeneously dense A mammogram that demonstrates density of C or D indicates the patient's breast tissue is dense. Dense breast tissue is very common and is not abnormal, but dense breast tissue can make it harder to find cancer on a mammogram. Also, dense breast tissue may increase their breast cancer risk. This informa tion about the result of the mammogram report was provided to the patient to raise their awareness. U se this report when you speak with the patient about their risks for breast cancer, which includes th eir family history. At that time, you may recommend for more screening tests (Ultrasound or MRI) as t hey might be useful based on their risk. A negative radiographic report should not delay biopsy if a dominant or clinically suspicious mass is present. Up to ten percent of cancers are not identified on mammography. A negative report may reinforce clinical impression. Adenosis and dense breasts may obscure an underlying neoplasm. False positive reports average 6 to 10%. Patient will receive a letter notifying them of these results.
== END ==
PROVIDERS: PCP Nurse Practitioner Adult Health; Visit Provider Nurse Practitioner Adult Health
DX: Z12.31 Encounter for screening mammogram for malignant neoplasm of breast (principal); R92.8 Other abnormal and inconclusive findings on diagnostic imaging of breast
CPT/HCPCS: 76642; 77063; 77067

== ENCOUNTER 2023-04-26 03:17 | Outpatient (CLI) | payer BC, SELFPAY ==
[2023-04-26 08:25] LABS: HCT 42.3 % (36.0-46.0); HGB 14.1 g/dL (11.2-15.7); MCH 29.5 pg (27.0-33.0); MCHC 33.3 % (32.0-36.0); MCV 89 fL (80-95); MPV 11.5 fL (8.0-11.0); Platelet Count 211 10^3/uL (130-400); RBC 4.78 10^6/uL (3.93-5.22); RDW 12.3 % (11.7-14.6); RDW-SD 40.4 fL; WBC 5.36 10^3/uL (4.4-10.8)
== END 2023-04-26 03:18 | disposition home or self-care (01) ==
PROVIDERS: PCP Nurse Practitioner Adult Health; Visit Provider Nurse Practitioner Adult Health
DX: H35.049 Retinal micro-aneurysms, unspecified, unspecified eye (principal)
CPT/HCPCS: 36415; 85027

== ENCOUNTER 2024-07-04 01:20 | Outpatient (CLI) | payer BC, SELFPAY ==
--- NOTE | 2024-07-04 13:08 | DI.MAMMO_ITS ---
Exam(s) MAMMO SCREENING EXAM: MAMMO SCREENING CLINICAL HISTORY: screening,Z12.39 TECHNIQUE: Bilateral full field digital CC and MLO mammographic images were obtained with 3D tomosyn thesis and utilizing computer aided detection (CAD). COMPARISON: Available for comparison. FINDINGS: Masses/Architectural Distortion: None seen. Microcalcifications: No suspicious pleomorphic-type are seen. Skin Thickening/Nipple Retraction: None. IMPRESSION: 1. No significant interval change with no specific features of malignancy noted. 2. Unless there is more urgent need, screening mammography is recommended, as per [employer] guidelines. BI-RADS Category 1 - Negative Breast Density - Category C - Heterogeneously dense Breast density category C or D implies that the patient has dense breast tissue. Dense breast tissue is very common and is not abnormal but dense breast tissue can make it harder to find cancer on a ma mmogram. Also, dense breast tissue may increase their breast cancer risk. This information about the result of the mammogram report was provided to the patient to raise their awareness. Use this report when you speak with the patient about their risks for breast cancer, which includes their family hist ory. At that time, you may recommend for more screening tests (Ultrasound or MRI) as they might be us eful based on their risk. A negative radiographic report should not delay biopsy if a dominant or clinically suspicious mass is present. Up to ten percent of cancers are not identified on mammography. A negative report may reinforce clinical impression. Adenosis and dense breasts may obscure an underlying neoplasm. False positive reports average 6 to 10%. Patient will receive a letter notifying them of these results.
== END 2024-07-04 01:40 ==
LOC: DI 01:20
PROVIDERS: PCP Nurse Practitioner Adult Health; Visit Provider Nurse Practitioner Adult Health
DX: Z12.31 Encounter for screening mammogram for malignant neoplasm of breast (principal); R92.333 Mammographic heterogeneous density, bilateral breasts
CPT/HCPCS: 77063; 77067

== ENCOUNTER 2024-10-09 09:22 | Outpatient (CLI) | payer BC, SELFPAY ==
[2024-10-09 10:00] LABS: ALT 25 U/L (14-59); AST 21 U/L (15-37); Albumin 3.8 g/dL (3.4-5.0); Alkaline Phosphatase 120 U/L (46-116); Anion Gap 6.9 mmol/L (3-11); BUN 19 mg/dL (7-18); Bilirubin, Total 0.8 mg/dL (0.2-1.0); CO2 31.1 mmol/L (21.0-32.0); CREATININE 0.9 mg/dL (0.55-1.02); Calcium 9.6 mg/dL (8.5-10.1); Calculated LDL 82 mg/dL (<100); Chloride 104 mmol/L (98-107); Cholesterol 176 mg/dL (<200); Glucose 84 mg/dL (74-106); HDL Cholesterol 85 mg/dL (>or=50); Sodium 142 mmol/L (136-145); Total Protein 6.9 g/dL (6.4-8.2); Triglyceride 46 mg/dL (<150); Vitamin D 25 Total 36 ng/mL (30-100)
[2024-10-10 09:23] LABS: Measles IgG Antibody Positive (See Note)
== END 2024-10-09 09:23 | disposition home or self-care (01) ==
LOC: LBO 09:22
PROVIDERS: PCP Nurse Practitioner Adult Health; Visit Provider Nurse Practitioner Adult Health
DX: Z13.220 Encounter for screening for lipoid disorders (principal); Z13.1 Encounter for screening for diabetes mellitus; E55.9 Vitamin D deficiency, unspecified; Z11.59 Encounter for screening for other viral diseases
CPT/HCPCS: 36415; 80053; 80061; 82306; 86765

== ENCOUNTER 2025-06-18 17:32 | Outpatient (REF) | payer BC, SELFPAY ==
[2025-06-18 19:18] LABS: HCT 42.2 % (36.0-46.0); HGB 13.7 g/dL (11.2-15.7); MCH 28.8 pg (27.0-33.0); MCHC 32.5 % (32.0-36.0); MCV 89 fL (80-95); MPV 12.1 fL (8.0-11.0); Platelet Count 241 10^3/uL (130-400); RBC 4.76 10^6/uL (3.93-5.22); RDW 12.8 % (11.7-14.6); RDW-SD 41.6 fL; WBC 7.21 10^3/uL (4.4-10.8)
[2025-06-18 19:24] LABS: ESR 4 mm/hr (0-30)
[2025-06-18 19:29] LABS: C-Reactive Protein < 0.50 mg/dL (<=0.50)
[2025-06-18 19:34] LABS: TSH (W/Ref FT4) 1.14 uIU/mL (0.55-4.78); Vitamin D 25 Total 73 ng/mL (30-100)
[2025-06-18 19:48] LABS: ALT 16 U/L (10-49); AST 23 U/L (<34); Albumin 4.4 g/dL (3.2-5.0); Alkaline Phosphatase 116 U/L (46-116); Anion Gap 6.7 mmol/L (3-11); BUN 18 mg/dL (9-23); Bilirubin, Total 0.4 mg/dL (0.2-1.2); CO2 30.3 mmol/L (20.0-31.0); Calcium 9.7 mg/dL (8.3-10.6); Chloride 104 mmol/L (98-107); Cholesterol 164 mg/dL (<200); Glucose 98 mg/dL (74-106); HDL Cholesterol 80 mg/dL (>or=50); Potassium 4.2 mmol/L (3.5-5.1); Sodium 141 mmol/L (136-145); Total Protein 7.1 g/dL (5.7-8.2)
== END 2025-06-18 17:33 | disposition home or self-care (01) ==
LOC: LBN 17:32
PROVIDERS: PCP Nurse Practitioner Adult Health; Visit Provider Nurse Practitioner Adult Health
DX: Z13.220 Encounter for screening for lipoid disorders (principal); Z13.1 Encounter for screening for diabetes mellitus; Z13.21 Encounter for screening for nutritional disorder; Z13.29 Encounter for screening for other suspected endocrine disorder; R29.898 Other symptoms and signs involving the musculoskeletal system
CPT/HCPCS: 80053; 80061; 82306; 85027; 85652; 84443; 86140